=== PATIENT | male | born 2000 | race Hispanic/Latino ===

== ENCOUNTER 2022-05-11 16:08 | Emergency (ER) | payer OTHER ==
[~2022-05-11] VITALS: Ht 175.3 cm; Wt 90.8 kg
[2022-05-11 16:09] VITALS: BP 124/100
[2022-05-11] MEDS ORDERED: KETOROLAC 60 MG VIAL (30MG/ML) IM ONE (16:30)
[2022-05-11] MEDS ORDERED: CYCLOBENZAPRINE HCL 10 MG TABLET PO ONE (16:30)
[2022-05-11] MEDS ORDERED: NAPR-1180 PO (16:40)
[2022-05-11] MEDS ORDERED: CYCL10TA16 PO (16:40)
== END 2022-05-11 17:08 | disposition home or self-care (01) ==
LOC: EDH 16:08
DX: S29.011A Strain of muscle and tendon of front wall of thorax, initial encounter (principal); Z79.1 Long term (current) use of non-steroidal anti-inflammatories (NSAID); X58.XXXA Exposure to other specified factors, initial encounter; Y93.89 Activity, other specified; Y92.89 Other specified places as the place of occurrence of the external cause; Y99.8 Other external cause status
CPT/HCPCS: 99283; J1885